=== PATIENT | female | born 1965 | race Two or more races ===

== ENCOUNTER 2024-04-21 08:21 | Emergency (ER) | payer OTHER ==
[~2024-04-21] VITALS: Ht 162.6 cm; Wt 70.8 kg
[2024-04-21] MEDS ORDERED: 0.9 % SODIUM CHLORIDE 1,000 ML IV STA (09:58)
[2024-04-21] MEDS ORDERED: MECLIZINE HCL 25 MG TABLET PO STA (10:00)
[2024-04-21 10:26] LABS: HEMATOCRIT 38.1 % (36.0-45.00); HEMOGLOBIN 12.8 g/dL (12.0-15.00); MEAN CELL VOLUME 88.2 fL (80.00-100.00); MEAN CORPUSCULAR HEMOGLOBIN 29.7 pg (27.00-32.0); MEAN CORPUSCULAR HGB CONC 33.7 g/dl (32.0-36.0); PLATELET COUNT 151 K/uL (150-450); RED BLOOD COUNT 4.32 M/uL (4.00-6.00); RED CELL DISTRIBUTION WIDTH 13.9 % (11.5-14.5)
[2024-04-21 11:05] LABS: URINE APPEARANCE Clear; URINE BILIRRUBIN Negative (NEGATIVE); URINE BLOOD Trace; URINE COLOR Yellow; URINE GLUCOSE Negative (NEGATIVE); URINE KETONE Trace (NEGATIVE); URINE LEUKOCYTE Negative; URINE NITRATE Negative; URINE PROTEIN Negative (NEGATIVE); URINE UROBILINOGEN 0.2 E.U./dl
[2024-04-21 11:10] LABS: URINE BACTERIA 6.1 uL (0.0-1933); URINE RBC 16.1 uL (0.0-20.8); URINE WBC 1.8 uL (0.0-23.2)
[2024-04-21 11:23] LABS: URINE EPITHELIAL CELLS 0.9 uL (0.0-38.8)
[2024-04-21 11:46] LABS: ALBUMIN 3.8 gm/dL (3.4-5.0); BILIRUBIN TOTAL 0.72 mg/dL (0.3-1.2); CALCIUM 8.6 mg/dL (8.5-10.1); CREATININE SERUM 0.73 mg/dL (0.55-1.02); GFR 81.32; GLOBULINA 3.4 G/DL (2.4-3.5); POTASSIUM 4.46 mEq/L (3.5-5.1); TOTAL PROTEIN 7.2 gm/dL (6.4-8.2)
== END 2024-04-21 13:28 | disposition home or self-care (01) ==
LOC: ER 08:24
DX: J10.1 Influenza due to other identified influenza virus with other respiratory manifestations (principal); B34.9 Viral infection, unspecified; Z88.0 Allergy status to penicillin; Z88.8 Allergy status to other drugs, medicaments and biological substances